=== PATIENT | male | born 1980 ===

== ENCOUNTER 2023-08-07 11:49 | Emergency (ER) | payer SELFPAY ==
[2023-08-07] MEDS ORDERED: LORazepam 1 MG Tab PO ONE (12:44)
[2023-08-07] MEDS ORDERED: Ondansetron 4 MG Tab.DIS PO ONE (12:44)
[2023-08-07 12:58] LABS: BASOPHILS PERCENT AUTO 0.3 % (0.0-1.0); EOSINOPHILS PERCENT AUTO 0.9 % (1.0-3.0); HEMATOCRIT 47.7 % (40.0-54.0); HEMOGLOBIN 16.2 g/dL (14.0-18.0); LYMPHOCYTES PERCENT AUTO 25.1 % (20.5-50.1); MEAN CORPUSCULAR HEMOGLOBIN 33.6 pg (27.0-34.0); MONOCYTES PERCENT AUTO 7.9 % (2-8); NEUTROPHILS PERCENT AUTO 65.8 % (42.2-75.2); PLATELET COUNT,PLT 317 10^3/uL (150-450); RED BLOOD CELL COUNT 4.82 10^6/uL (4.6-6.2); WHITE BLOOD CELL COUNT,WBC 8.9 10^3/uL (5.0-10.0)
[2023-08-07 13:09] LABS: APPEARANCE,URINE CLEAR (CLEAR); BILIRUBIN,URINE NEGATIVE (NEGATIVE); COLOR,URINE YELLOW (YELLOW); GLUCOSE,URINE NEGATIVE (NEGATIVE); KETONES,URINE 15 (NEGATIVE); LEUKOCYTE ESTERASE,URINE NEGATIVE (NEGATIVE); NITRITE,URINE NEGATIVE (NEGATIVE); OCCULT BLOOD,URINE NEGATIVE (NEGATIVE); PROTEIN,URINE NEGATIVE (NEGATIVE); UROBILINOGEN,URINE 0.2 mg/dL (0.2-1.0)
[2023-08-07 13:11] LABS: AMPHETAMINES,URINE NEGATIVE (NEGATIVE); BARBITURATES,URINE NEGATIVE (NEGATIVE); BENZODIAZEPINE,URINE NEGATIVE (NEGATIVE); MDMA (ECSTASY), URINE NEGATIVE (NEGATIVE); METHADONE,URINE NEGATIVE (NEGATIVE); METHAMPHETAMINES,URINE NEGATIVE (NEGATIVE); OPIATES,URINE NEGATIVE (NEGATIVE); OXYCODONE,URINE NEGATIVE (NEGATIVE); PHENCYCLIDINE,URINE NEGATIVE (NEGATIVE); TCA,URINE NEGATIVE (NEGATIVE)
[2023-08-07 13:28] LABS: INR 0.9 (0.9-1.2); PROTHROMBIN TIME 9.7 SEC (9.0-12.0); PTT,PARTIAL THROMBOPLSTIN TIME 25.9 SEC (22.0-34.0)
[2023-08-07 13:33] LABS: A/G RATIO 1.2; ALBUMIN 4.2 g/dL (3.4-5.0); ANION GAP 18.2 mEq/L (7-13); BILIRUBIN TOTAL 0.4 mg/dL (0.2-1.0); BUN/CREATININE RATIO 11.7 (No establ ref range); CALCIUM 8.9 mg/dL (8.5-10.1); CREATININE 0.94 mg/dL (0.70-1.30); EST CRCL DRUG DOSING (CG) 107.83 mL/min; MAGNESIUM 2.2 mg/dL (1.8-2.4); POTASSIUM,K 5.2 mmol/L (3.5-5.1); PROTEIN TOTAL,TP 7.7 g/dL (6.4-8.2); TSH ULTRASENSITIVE 1.11 uIU/mL (0.36-3.74)
[2023-08-07 13:39] LABS: CORONAVIRUS COVID-19 NAA NEGATIVE (NEGATIVE); INFLUENZA A NAA NEGATIVE (NEGATIVE); INFLUENZA B NAA NEGATIVE (NEGATIVE); RESPIRATORY SYNCYTIAL VIR NAA NEGATIVE (NEGATIVE)
[2023-08-07] MEDS ORDERED: Take Home: LORazepam 1 MG Tab, 2 Tab Pack PO ONE (14:56)
[2023-08-07] MEDS ORDERED: Take Home: Ondansetron 4 MG Tab.DIS, 5 Tab Pack PO ONE (14:56)
== END 2023-08-07 15:19 | disposition home or self-care (01) ==
LOC: DL.ED 11:49
DX: F10.10 Alcohol abuse, uncomplicated (principal); F17.210 Nicotine dependence, cigarettes, uncomplicated; Z20.822 Contact with and (suspected) exposure to COVID-19
CPT/HCPCS: 0241U; 36415; 80053; 80305; 80307; 81003; 83690; 83735; 84443; 85025; 85610; 85730; 99284; A9270; Q0162